=== PATIENT | female | born 1980 | race Caucasian/White ===

== ENCOUNTER → 2023-06-05 | Outpatient (CLI) | payer OTHER ==
[~2023-06-05] MED LIST: BRIN20TA PO; DRISDOL50000 IU PO; GLIPIZIDE2.5 MG PO; GOOD SENSE ALLE10 MG PO; LATU80TA PO; LIPITOR10 MG PO; PRISTIQ100 MG PO; SEROQUEL XR300 MG PO; SEROQUEL50 MG PO; TOPAMAX100 MG PO; VISTARIL50 MG PO
== END | disposition home or self-care (01) ==
LOC: CARD 05-16 08:00
PROVIDERS: ATTEND Nurse Practitioner Family
DX: E11.21 Type 2 diabetes mellitus with diabetic nephropathy (principal); F20.9 Schizophrenia, unspecified; E86.0 Dehydration; R20.0 Anesthesia of skin; Z23 Encounter for immunization